=== PATIENT | male | born 1965 | race Caucasian/White ===

== ENCOUNTER 2019-01-24 07:17 | Inpatient (IN) | payer MEDICAID ==
[2019-01-23 13:01] LABS: CLARITY,URINE CLEAR (Clear); COLOR,URINE STRAW (Yellow); GLUCOSE, URINE NEGATIVE (Neg); KETONES,URINE NEGATIVE (Neg); LEUKOCYTE ESTERASE ,URINE NEGATIVE (Neg); NITRITES, URINE NEGATIVE (Neg); OCCULT BLOOD,URINE NEGATIVE (Neg); PH,URINE 5.5 (4.8-8.0); PROTEIN,URINE NEGATIVE (Neg); UROBILINOGEN,URINE 0.2 E.U/dL (0.2-1.0)
[2019-01-23 13:03] LABS: UA COLLECTION TYPE NON-SPECIFIED
[2019-01-23 13:04] LABS: BASOPHILS # (AUTO) 0.1 X10'3 (0-0.2); BASOPHILS % (AUTO) 1.1 % (0-1); EOSINOPHILS # (AUTO) 0.3 X10'3 (0-0.9); EOSINOPHILS % (AUTO) 3.5 % (0-6); LYMPHOCYTES # (AUTO) 2.1 X10'3 (1.1-4.8); LYMPHOCYTES % (AUTO) 21.9 % (21-51); MEAN CORPUSCULAR HGB CONC 33.9 g/dL (33.0-36.5); MEAN CORPUSCULAR VOLUME 91.5 FL (78-98); MEAN PLATELET VOLUME 9.2 FL (7.4-10.4); MONOCYTES # (AUTO) 1.1 X10'3 (0-0.9); MONOCYTES % (AUTO) 10.8 % (2-12); NEUTROPHILS # (AUTO) 6.1 X10'3 (1.8-7.7); NEUTROPHILS % (AUTO) 62.7 % (42-75); PRE OP HEMATOCRIT 45.9 % (42.0-52.0); PRE OP HEMOGLOBIN 15.6 g/dL (14.0-17.9); PRE OP PLATELET COUNT 276 X10'3 (140-440); RED BLOOD COUNT 5.02 X10'6 (4.70-6.10); RED CELL DISTRIBUTION WIDTH 14.1 % (11.5-14.5)
[2019-01-23 13:18] LABS: PRE OP PROTIME 10.5 SECONDS (9.0-12.0)
[2019-01-23 13:19] LABS: ALBUMIN 3.9 G/DL (3.4-5.0); ALBUMIN/GLOBULIN RATIO 1.2 (1.1-1.5); ALKALINE PHOSPHATASE 41 IU/L (46-116); BLOOD UREA NITROGEN 8 MG/DL (7-18); BUN/CREATININE RATIO 7.7 (5.4-32.0); CALCIUM 9.1 MG/DL (8.5-10.1); CHLORIDE 103 MMOL/L (99-107); CREATININE 1.04 MG/DL (0.60-1.10); PRE OP ALT 54 U/L (30-65); PRE OP ANION GAP 9 (8-16); PRE OP AST 29 U/L (10-37); PRE OP BILIRUB, TOTAL 0.2 MG/DL (0.0-1.0); PRE OP GLUCOSE 94 MG/DL (70-104); PRE OP POTASSIUM 4.8 MMOL/L (3.4-5.1); PRE OP SODIUM 136 MMOL/L (135-145); TOTAL CARBON DIOXIDE 24.1 MMOL/L (24-32); TOTAL PROTEIN 7.1 G/DL (6.4-8.2); eGFR 74 ML/MIN
[2019-01-24] VITALS (16 sets, daily range): BP systolic 117–157; BP diastolic 70–88
[~2019-01-24] VITALS: Ht 165.1 cm; Wt 91.3 kg
[~2019-01-24 07:17] MED LIST: ALPR1TAB7 PO; ASPI-1265 PO; DOCUMENT DATE & TIME OF BETA-BLOCKER PO ONE; FLUT16SP2 BOTHNARES; HYDR-4353 PO; LISI-643 PO; METO-539 PO; RANI300T4 PO; ROSU40TA PO; albuterol 2.5 MG/3 ML nebule NEB ONE; cefazolin/dext.iso 2gm/100 ML IV ONE; famotidine 20mg tablet PO ONE; metoprolol tartrate 25mg tablet PO ONE; ringers solution, lacted 1,000 ML IV SCH
[2019-01-24] MEDS ORDERED: normal saline 500ml IV soln 500 ML IV ONE (07:55)
[2019-01-24] MEDS ORDERED: nitroGLYCERIN 0.4mg SUBLingual tab SL PRN (07:55)
[2019-01-24] MEDS ORDERED: regadenoson 0.4mg/5ml syringe IV ONE ×2 (07:55→08:32)
[2019-01-24] MEDS ORDERED: aminophylline 250mg/10ml inj. IV PRN ×2 (07:55→08:35)
[2019-01-24] MEDS ORDERED: cefazolin/dext.iso 2gm/100ml 100 ML IV ONE (08:02)
[2019-01-24] MEDS ORDERED: aminophylline inj. 10 ML IV ONE (08:32)
[2019-01-24] MEDS ORDERED: LIDOcaine 1% (10mg/ml) 2ml vial ONE ×2 (10:08→11:09)
[2019-01-24] MEDS ORDERED: iohexol 300 MG/1 ML 10ml vial ONE (10:28)
[2019-01-24] MEDS ORDERED: heparin 10,000 units/1 ML INJ ONE (10:28)
[2019-01-24] MEDS ORDERED: ceFAZolin 1000mg inj ONE ×3 (10:29→17:54)
[2019-01-24] MEDS ORDERED: iohexol 300 MG/1 ML 50ml polymer ONE (10:30)
[2019-01-24] MEDS ORDERED: NORepinephrine 1 mg/ml inj IV ONE (11:58)
[2019-01-24] MEDS ORDERED: sevoflurane 250ml liquid IH ONE (13:43)
[2019-01-24] MEDS ORDERED: fentaNYL /PF 50mcg/ml 5ml ampule ONE (13:48)
[2019-01-24] MEDS ORDERED: rocuronium 10mg/ml inj IV ONE ×3 (13:48→18:22)
[2019-01-24] MEDS ORDERED: MIDAZolam 5mg/5ml vial ONE (13:48)
[2019-01-24] MEDS ORDERED: propofol inj 20 ML IV ONE (13:48)
[2019-01-24] MEDS ORDERED: ringers solution, lacted 1,000 ML IV SCH (15:07)
[2019-01-24] MEDS ORDERED: ondansetron/PF 4mg/2ml inj IV PRN (15:10)
[2019-01-24] MEDS ORDERED: proCHLORperazine 10 MG/2 ml inj IV PRN (15:10)
[2019-01-24] MEDS ORDERED: meperidine/PF 25mg/ml syringe IV PRN ×3 (15:10)
[2019-01-24] MEDS ORDERED: morphine 4 MG/ML inj SYRINge IV PRN ×2 (15:10)
[2019-01-24] MEDS ORDERED: heparin 1,000unit/ml 10ml vial 10 ML ONE (15:48)
[2019-01-24] MEDS ORDERED: nitroGLYCERIN-Tridil 50MG/D5W 250 ML IV ONE (18:09)
[2019-01-24 18:22] LABS: INR 1.2 INR; PROTHROMBIN TIME 12.1 SECONDS (9.0-12.0)
[2019-01-24 18:25] LABS: PARTIAL THROMBOPLASTIN TIME > 153 SECONDS (22-32)
[2019-01-24] MEDS ORDERED: glycopyrrolate 0.2mg/ml inj ONE (18:26)
[2019-01-24] MEDS ORDERED: neostigmine methylsulfate 1 MG/ML 10ml vial ONE (18:26)
[2019-01-24] MEDS ORDERED: fentaNYL/PF 50MCG/1 ML 2ML syringe ONE (18:43)
[2019-01-24] MEDS ORDERED: CADD PCA waste documentation MC PRN (19:20)
[2019-01-24] MEDS ORDERED: naloxone 0.4 mg/ml inj IV PRN (19:20)
[2019-01-24] MEDS ORDERED: metoclopramide 5 mg/ml inj IV PRN (19:20)
[2019-01-24] MEDS ORDERED: HYDROmorphone 1 mg/ml syringe IV ONE (20:10)
[2019-01-24] MEDS: HYDROmorphone/NS 1 mg/ml CADD 50 ML IV SCH ×3 (20:29→23:00)
[2019-01-24 20:37] LABS: BASOPHILS # (AUTO) 0.1 X10'3 (0-0.2); BASOPHILS % (AUTO) 0.5 % (0-1); EOSINOPHILS # (AUTO) 0.2 X10'3 (0-0.9); EOSINOPHILS % (AUTO) 0.9 % (0-6); HEMATOCRIT 39.4 % (42.0-52.0); HEMOGLOBIN 12.9 g/dl (14.0-17.9); LYMPHOCYTES # (AUTO) 2.5 X10'3 (1.1-4.8); LYMPHOCYTES % (AUTO) 10.6 % (21-51); MEAN CORPUSCULAR HEMOGLOBIN 30.4 PG (27.0-31.0); MEAN CORPUSCULAR HGB CONC 32.8 g/dL (33.0-36.5); MEAN CORPUSCULAR VOLUME 92.6 FL (78-98); MEAN PLATELET VOLUME 9.2 FL (7.4-10.4); MONOCYTES # (AUTO) 1.7 X10'3 (0-0.9); MONOCYTES % (AUTO) 7.2 % (2-12); NEUTROPHILS # (AUTO) 19.1 X10'3 (1.8-7.7); NEUTROPHILS % (AUTO) 80.8 % (42-75); PLATELET COUNT 270 X10'3 (140-440); RED BLOOD COUNT 4.26 X10'6 (4.70-6.10); RED CELL DISTRIBUTION WIDTH 14.4 % (11.5-14.5); WHITE BLOOD COUNT 23.6 X10'3 (4.5-11.0)
[2019-01-24 20:52] LABS: ALANINE AMINOTRANSFERASE 39 U/L (12-78); ALBUMIN 3.5 G/DL (3.4-5.0); ALBUMIN/GLOBULIN RATIO 1.5 (1.1-1.5); ALKALINE PHOSPHATASE 35 IU/L (46-116); ANION GAP 11 (8-16); ASPARTATE AMINO TRANSFERASE 27 U/L (10-37); BILIRUBIN,TOTAL 0.3 MG/DL (0.1-1.0); BLOOD UREA NITROGEN 10 MG/DL (7-18); BUN/CREATININE RATIO 9.5 (5.4-32.0); CALCIUM 7.9 MG/DL (8.5-10.1); CHLORIDE 107 MMOL/L (99-107); CREATININE 1.05 MG/DL (0.60-1.10); GLUCOSE 152 MG/DL (70-104); MAGNESIUM 1.5 MG/DL (1.5-2.4); POTASSIUM 4.7 MMOL/L (3.5-5.1); SODIUM 140 MMOL/L (135-145); TOTAL CARBON DIOXIDE 22.1 MMOL/L (24-32); TOTAL PROTEIN 5.8 G/DL (6.4-8.2); eGFR 73 ML/MIN
[2019-01-24 20:54] LABS: INR 1.1 INR; PROTHROMBIN TIME 11.5 SECONDS (9.0-12.0)
[2019-01-24 20:59] LABS: PLATELET ESTIMATE NORMAL; TOTAL CELLS COUNTED 100
[2019-01-24] MEDS: potassium CL 20mEq in D5-1/2NS 1,000 ML IV SCH (22:06)
[2019-01-25] VITALS (24 sets, daily range): BP systolic 116–154; BP diastolic 55–92
[2019-01-25] MEDS: piperacillin/tazo 3.375gm/50ml 50 ML IV SCH ×3 (00:02→15:59)
[2019-01-25] MEDS: ondansetron/PF 4mg/2ml inj IV PRN ×2 (00:48→22:41)
[2019-01-25] MEDS: dextrose 5%-1/2 normal saline 1,000 ML IV SCH ×2 (00:50→11:00)
[2019-01-25] MEDS: HYDROmorphone/NS 1 mg/ml CADD 50 ML IV SCH ×12 (01:00→23:00)
[2019-01-25] MEDS ORDERED: HYDROcodone/acetaminophen 10/325mg tab PO PRN (01:45)
[2019-01-25 03:03] LABS: BASOPHILS # (AUTO) 0.1 X10'3 (0-0.2); BASOPHILS % (AUTO) 0.3 % (0-1); EOSINOPHILS % (AUTO) 0.1 % (0-6); HEMATOCRIT 39.1 % (42.0-52.0); HEMOGLOBIN 12.8 g/dl (14.0-17.9); LYMPHOCYTES # (AUTO) 0.8 X10'3 (1.1-4.8); LYMPHOCYTES % (AUTO) 4.6 % (21-51); MEAN CORPUSCULAR HEMOGLOBIN 30.5 PG (27.0-31.0); MEAN CORPUSCULAR HGB CONC 32.8 g/dL (33.0-36.5); MEAN CORPUSCULAR VOLUME 93.1 FL (78-98); MONOCYTES # (AUTO) 1.5 X10'3 (0-0.9); MONOCYTES % (AUTO) 8.6 % (2-12); NEUTROPHILS # (AUTO) 15.4 X10'3 (1.8-7.7); NEUTROPHILS % (AUTO) 86.4 % (42-75); PLATELET COUNT 236 X10'3 (140-440); RED BLOOD COUNT 4.21 X10'6 (4.70-6.10); RED CELL DISTRIBUTION WIDTH 14.6 % (11.5-14.5); WHITE BLOOD COUNT 17.8 X10'3 (4.5-11.0)
[2019-01-25 03:14] LABS: ALBUMIN 3.5 G/DL (3.4-5.0); ANION GAP 11 (8-16); BLOOD UREA NITROGEN 11 MG/DL (7-18); BUN/CREATININE RATIO 9.8 (5.4-32.0); CALCIUM 8.2 MG/DL (8.5-10.1); CHLORIDE 105 MMOL/L (99-107); CREATININE 1.12 MG/DL (0.60-1.10); GLUCOSE 167 MG/DL (70-104); POTASSIUM 5.8 MMOL/L (3.5-5.1); SODIUM 139 MMOL/L (135-145); TOTAL CARBON DIOXIDE 22.6 MMOL/L (24-32); eGFR 68 ML/MIN
[2019-01-25] MEDS: potassium CL 20mEq in D5-1/2NS 1,000 ML IV SCH (03:19)
[2019-01-25] MEDS: aspirin 81mg tab.chew PO SCH (08:00)
[2019-01-25] MEDS: fluticasone nasal spray 16GM bottle NS SCH (08:00)
[2019-01-25] MEDS ORDERED: lisinopril 10 MG tablet PO SCH (08:00)
[2019-01-25] MEDS: metoprolol succinate 25mg (24-HOUR) SR. Tablet PO SCH (08:00)
[2019-01-25] MEDS ORDERED: dextrose 5%-1/4 normal saline 1,000 ML IV SCH (10:50)
--- NOTE | 2019-01-25 18:12 | NUR ---
At the start of shift, noted patient's potassium was 5.8; patient at this time receiving D5-1/2NS with 20meq of K, however, was receiving piggyback antibiotics. D5-1/2NS with 20meq of K was thus stopped and MD orders to convert to D5-1/2NS at the same rate. Pulses remained palpable throughout the day. During rounds with Dr. Hernadez, orders to keep patient NPO with ice-chips and popsicles; hold off on PO medications. Try to keep SBP at 140; patient's blood pressure remained steady between 130 to 140 and occasionally reached SBP 150; encouraged use of CADD pump to manage pain and blood pressure. IS/FV encouraged through the day. Patient up with PT standing at side of bed; however, patient was in too much pain and placed back to bed. Vital signs stable throughout. ART line removed around 1200 and pressure held until hemostasis achieved. Pt pleasant and compliant with plan of care; hungry but happy with popsicles for now. Will advance diet as tolerated once patient passes more gas/stool. Report given to Aman GONZALEZ with all questions answered.
[2019-01-25] MEDS: lactobacillus rhamnosus 10,000 MMU CELLS/CAPSULE PO SCH (20:00)
[2019-01-25] MEDS: atorvastatin 20mg tablet PO SCH (21:00)
[2019-01-25] MEDS: famotidine 20mg tablet PO SCH (21:00)
[2019-01-26] VITALS (24 sets, daily range): BP systolic 113–176; BP diastolic 49–100
[2019-01-26] MEDS: piperacillin/tazo 3.375gm/50ml 50 ML IV SCH ×4 (00:53→23:00)
[2019-01-26] MEDS: HYDROmorphone/NS 1 mg/ml CADD 50 ML IV SCH ×12 (01:00→23:00)
[2019-01-26] MEDS: dextrose 5%-1/2 normal saline 1,000 ML IV SCH ×4 (02:55→22:56)
[2019-01-26 03:33] LABS: BASOPHILS % (AUTO) 0.3 % (0-1); EOSINOPHILS % (AUTO) 0.1 % (0-6); HEMATOCRIT 35.4 % (42.0-52.0); HEMOGLOBIN 11.8 g/dl (14.0-17.9); LYMPHOCYTES # (AUTO) 1.2 X10'3 (1.1-4.8); LYMPHOCYTES % (AUTO) 8.4 % (21-51); MEAN CORPUSCULAR HEMOGLOBIN 30.8 PG (27.0-31.0); MEAN CORPUSCULAR HGB CONC 33.5 g/dL (33.0-36.5); MEAN CORPUSCULAR VOLUME 91.9 FL (78-98); MEAN PLATELET VOLUME 8.9 FL (7.4-10.4); MONOCYTES % (AUTO) 13.9 % (2-12); NEUTROPHILS # (AUTO) 11.1 X10'3 (1.8-7.7); NEUTROPHILS % (AUTO) 77.3 % (42-75); PLATELET COUNT 202 X10'3 (140-440); RED BLOOD COUNT 3.85 X10'6 (4.70-6.10); RED CELL DISTRIBUTION WIDTH 14.5 % (11.5-14.5); WHITE BLOOD COUNT 14.3 X10'3 (4.5-11.0)
[2019-01-26 03:34] LABS: ALBUMIN 3.1 G/DL (3.4-5.0); ANION GAP 7 (8-16); BLOOD UREA NITROGEN 9 MG/DL (7-18); BUN/CREATININE RATIO 7.8 (5.4-32.0); CALCIUM 8.3 MG/DL (8.5-10.1); CHLORIDE 105 MMOL/L (99-107); CREATININE 1.15 MG/DL (0.60-1.10); GLUCOSE 149 MG/DL (70-104); SODIUM 140 MMOL/L (135-145); TOTAL CARBON DIOXIDE 27.9 MMOL/L (24-32); eGFR 66 ML/MIN
[2019-01-26] MEDS: lactobacillus rhamnosus 10,000 MMU CELLS/CAPSULE PO SCH ×2 (07:10→20:09)
[2019-01-26] MEDS: fluticasone nasal spray 16GM bottle NS SCH (07:10)
[2019-01-26] MEDS: aspirin 81mg tab.chew PO SCH (07:10)
[2019-01-26] MEDS: metoprolol succinate 25mg (24-HOUR) SR. Tablet PO SCH (07:10)
[2019-01-26] MEDS ORDERED: aspirin 81mg tablet.DR PO SCH (08:00)
[2019-01-26] MEDS: enoxaparin 40mg/0.4ml syringe SUBCUT SCH (13:29)
--- NOTE | 2019-01-26 14:00 | NUR ---
D/C'd [facility] per hospital policy; hemostasis achieved and dressing placed. Patient tolerated procedure well. Cannula intact.
[2019-01-26] MEDS: metoclopramide 5 mg/ml inj IV SCH ×2 (14:15→20:08)
--- NOTE | 2019-01-26 17:27 | NUR ---
Patient recovering well and up with physical therapy today today and sat in chair for about 2 hours. Painful in the adb, but encouraged use of CADD pump, which helped ease pain. Patient reports "something is brewing" in his intestines and is waiting to pass gas so he can start eating. Dr. Hernadez okay with popsicles, ice chips, and PO medications, otherwise NPO. Patient using IS and FV frequently. Encouraged freq turns in bed.
--- NOTE | 2019-01-26 18:20 | NUR ---
Patient in room ICU 2044. I have received report from CARLOS Boyd and had the opportunity to ask questions and assume patient care with preceptor CARLOS Hooper.
--- NOTE | 2019-01-26 18:36 | NUR ---
Patient report given to Sandie GONZALEZ and Grace GONZALEZ with all questions answered.
[2019-01-26] MEDS: atorvastatin 20mg tablet PO SCH (20:09)
[2019-01-26] MEDS: famotidine 20mg tablet PO SCH (20:10)
--- NOTE | 2019-01-26 20:14 | NUR ---
Medications sent home with Laure.
--- NOTE | 2019-01-26 21:13 | NUR ---
Pt unable to void 2000 bladder scan for 625ml, pt stood up attempted to void in urinal unable, says feels no urge to void. Called Dr Hernadez per received order to straight cath greater than 650ml.
--- NOTE | 2019-01-26 21:55 | NUR ---
bladder scanned 744ml, straight cath 725ml.
--- NOTE | 2019-01-26 22:31 | NUR ---
Problems reprioritized. Patient report given, questions answered & plan of care reviewed with CARLOS Sharma. Patient to be transfered to room 349B. Patient is awake and alert, c/o pain 3/10 using CADD pump for pain management with encouragement. Groin dressings are clean, dry, intact, no drainage noted, no air leak noted. Positive pedal pulses. Patient would like to be able to sleep tonight as he has had trouble the last few nights. Patient has PRN Xanax for sleep tonight, this information was relayed in report to CARLOS Sharma. Patient placed on patient monitor #2. Transfered to wheelchair with 1 person assist. All patient belongings with patient.
--- NOTE | 2019-01-26 22:32 | NUR ---
I have received report from Addie GONZALEZ and had the opportunity to ask questions. awaiting pt arrival
--- NOTE | 2019-01-26 22:40 | NUR ---
Transferred via wheelchair Belongings sent with patient to room 349B. Special Issues communicated to receiving nurse. Pt stable on transfer.Edith GONZALEZ.
--- NOTE | 2019-01-26 22:45 | NUR ---
Orientation documentation:I have reviewed and agree with all interventions, assessments performed and documented by Addie Orta RN. Orientation Medication Administration: For this medication-pass time frame, all medication were reviewed, dispensed, administered and documented per hospital policy by Addie Zambrano RN..
[2019-01-26] MEDS: ALPRAZolam 0.5mg tablet PO PRN (22:56)
--- NOTE | 2019-01-26 23:15 | NUR ---
called Dr. Dinero concerning heart rate being reported in the high 20s and not going about 35 in afib. pt is asymptomatic and blood pressure 116/54. orders given and pt may need to be transferred. Addendum: 01/26/19 at 4894 by Edith Dawson RN disregard previous note.
[2019-01-27] VITALS: BP 159/96
[2019-01-27] MEDS: HYDROmorphone/NS 1 mg/ml CADD 50 ML IV SCH ×12 (01:00→23:00)
[2019-01-27] MEDS: metoclopramide 5 mg/ml inj IV SCH ×4 (01:54→20:05)
--- NOTE | 2019-01-27 05:21 | NUR ---
bladder scan showed 456mL in the bladder. pt states he feels the need to urinal but cant quite yet. helped pt stand at the side of bed to use urinal. will continue to monitor.
[2019-01-27 05:35] VITALS: BP 182/94
--- NOTE | 2019-01-27 05:35 | NUR ---
pt sitting at the side of the bed trying to use urinal and "moving around to pas some gas." states he feels fine. groin is soft to touch, dressing CDI with no leakage. abdomen is soft, dressing CDI with no leakage. blood pressure 182/94 and heart rate 135. will continue to monitor.
[2019-01-27 05:39] LABS: BASOPHILS % (AUTO) 0.3 % (0-1); EOSINOPHILS # (AUTO) 0.1 X10'3 (0-0.9); EOSINOPHILS % (AUTO) 0.9 % (0-6); HEMATOCRIT 34.3 % (42.0-52.0); HEMOGLOBIN 11.5 g/dl (14.0-17.9); LYMPHOCYTES # (AUTO) 1.5 X10'3 (1.1-4.8); LYMPHOCYTES % (AUTO) 12.4 % (21-51); MEAN CORPUSCULAR HEMOGLOBIN 30.8 PG (27.0-31.0); MEAN CORPUSCULAR HGB CONC 33.4 g/dL (33.0-36.5); MEAN PLATELET VOLUME 8.8 FL (7.4-10.4); MONOCYTES # (AUTO) 1.9 X10'3 (0-0.9); MONOCYTES % (AUTO) 14.9 % (2-12); NEUTROPHILS # (AUTO) 8.8 X10'3 (1.8-7.7); NEUTROPHILS % (AUTO) 71.5 % (42-75); PLATELET COUNT 203 X10'3 (140-440); RED BLOOD COUNT 3.73 X10'6 (4.70-6.10); RED CELL DISTRIBUTION WIDTH 14.4 % (11.5-14.5); WHITE BLOOD COUNT 12.4 X10'3 (4.5-11.0)
[2019-01-27 05:43] LABS: ALBUMIN 2.9 G/DL (3.4-5.0); ANION GAP 10 (8-16); BLOOD UREA NITROGEN 9 MG/DL (7-18); BUN/CREATININE RATIO 8.9 (5.4-32.0); CALCIUM 8.7 MG/DL (8.5-10.1); CHLORIDE 103 MMOL/L (99-107); CREATININE 1.01 MG/DL (0.60-1.10); GLUCOSE 137 MG/DL (70-104); POTASSIUM 3.5 MMOL/L (3.5-5.1); SODIUM 141 MMOL/L (135-145); TOTAL CARBON DIOXIDE 27.9 MMOL/L (24-32); eGFR 77 ML/MIN
--- NOTE | 2019-01-27 06:10 | NUR ---
Problems reprioritized. Patient report given, questions answered & plan of care reviewed with Melecio GONZALEZ. Janisn clamped, started infusing at 0640. IV intact, call light and frq used belongings within reach. no signs of distress. wound vac at 125, dressings CDI no leak or drainage. abdominal dressing CDI with scant drainage noted on the dressing.
--- NOTE | 2019-01-27 06:51 | NUR ---
Patient in room [facility] 349. I have received report from Edith GONZALEZ and had the opportunity to ask questions and assume patient care.
[2019-01-27 08:00] VITALS: BP 150/89
[2019-01-27] MEDS: fluticasone nasal spray 16GM bottle NS SCH (09:36)
[2019-01-27] MEDS: piperacillin/tazo 3.375gm/50ml 50 ML IV SCH ×3 (09:37→23:43)
[2019-01-27] MEDS: metoprolol succinate 25mg (24-HOUR) SR. Tablet PO SCH (09:39)
[2019-01-27] MEDS: lactobacillus rhamnosus 10,000 MMU CELLS/CAPSULE PO SCH ×2 (09:39→20:02)
[2019-01-27] MEDS: enoxaparin 40mg/0.4ml syringe SUBCUT SCH (09:40)
[2019-01-27] MEDS: aspirin 81mg tab.chew PO SCH (09:40)
[2019-01-27] MEDS: dextrose 5%-1/2 normal saline 1,000 ML IV SCH ×2 (10:55→20:14)
[2019-01-27 12:00] VITALS: BP 128/83
--- NOTE | 2019-01-27 14:06 | NUR ---
Dr Hernadez rounded on patient received orders to start Flomax 0.4mg PO Daily, possible discharge monday or monday. The Day of patients discharge ok to [facility] and follow up in Dr Shi office 1 week.
--- NOTE | 2019-01-27 15:56 | NUR ---
Initial: Pt s/p aorto-bifemoral bypass. Advanced to clear liquids 01/27 PO 100% first meal. Pt NPO since admit 01/24 w/ PO documentation of 100% meals during NPO; likely documentation error since pt did not receive and food from dietary unless food brought in from outside. LBM 01/24. Will monitor for diet advancement and additional protein needs. Rec: 1. advance diet per MD to low-residue 2. monitor for ONS needs 3. wt per rx Addendum: 01/27/19 at [address] Amended: Links added.
--- NOTE | 2019-01-27 17:30 | NUR ---
Straight Catheter - 900ml out.
--- NOTE | 2019-01-27 18:25 | NUR ---
Received report from CARLOS Majano. Patient is awake and alert on room air, in no apparent distress. Call light and items of frequent use within reach. Will continue to monitor.
--- NOTE | 2019-01-27 18:33 | NUR ---
Problems reprioritized. Patient report given, questions answered & plan of care reviewed with Stephie GONZALEZ.
[2019-01-27 20:00] VITALS: BP 124/86
[2019-01-27] MEDS: magnesium hydroxide 30ml (MOM) UD suspension PO SCH (20:01)
[2019-01-27] MEDS: atorvastatin 20mg tablet PO SCH (20:02)
[2019-01-27] MEDS: famotidine 20mg tablet PO SCH (20:02)
[2019-01-27] MEDS: tamsulosin 0.4mg capsule PO SCH (20:05)
[2019-01-27] MEDS: ALPRAZolam 0.5mg tablet PO PRN (21:29)
[2019-01-28] VITALS: BP 133/75
[2019-01-28] MEDS: HYDROmorphone/NS 1 mg/ml CADD 50 ML IV SCH ×12 (01:00→23:00)
[2019-01-28] MEDS: dextrose 5%-1/2 normal saline 1,000 ML IV SCH ×3 (02:55→16:42)
[2019-01-28] MEDS: metoclopramide 5 mg/ml inj IV SCH ×4 (03:19→19:31)
--- NOTE | 2019-01-28 05:13 | NUR ---
Bladder scan showed 527 cc of urine. Encouraged patient to void
[2019-01-28 06:06] LABS: BASOPHILS # (AUTO) 0.1 X10'3 (0-0.2); BASOPHILS % (AUTO) 0.8 % (0-1); EOSINOPHILS # (AUTO) 0.3 X10'3 (0-0.9); EOSINOPHILS % (AUTO) 3.9 % (0-6); HEMATOCRIT 29.3 % (42.0-52.0); HEMOGLOBIN 10.1 g/dl (14.0-17.9); LYMPHOCYTES # (AUTO) 0.9 X10'3 (1.1-4.8); LYMPHOCYTES % (AUTO) 12.6 % (21-51); MEAN CORPUSCULAR HEMOGLOBIN 31.3 PG (27.0-31.0); MEAN CORPUSCULAR HGB CONC 34.3 g/dL (33.0-36.5); MEAN CORPUSCULAR VOLUME 91.2 FL (78-98); MEAN PLATELET VOLUME 8.8 FL (7.4-10.4); MONOCYTES # (AUTO) 1.3 X10'3 (0-0.9); MONOCYTES % (AUTO) 18.1 % (2-12); NEUTROPHILS # (AUTO) 4.7 X10'3 (1.8-7.7); NEUTROPHILS % (AUTO) 64.6 % (42-75); PLATELET COUNT 183 X10'3 (140-440); RED BLOOD COUNT 3.22 X10'6 (4.70-6.10); RED CELL DISTRIBUTION WIDTH 13.9 % (11.5-14.5); WHITE BLOOD COUNT 7.2 X10'3 (4.5-11.0)
--- NOTE | 2019-01-28 06:11 | NUR ---
Problems reprioritized. Patient report given, questions answered & plan of care reviewed with CARLOS Majano.
[2019-01-28 06:28] LABS: ALBUMIN 2.6 G/DL (3.4-5.0); ANION GAP 10 (8-16); BLOOD UREA NITROGEN 7 MG/DL (7-18); BUN/CREATININE RATIO 7.3 (5.4-32.0); CALCIUM 8.2 MG/DL (8.5-10.1); CHLORIDE 99 MMOL/L (99-107); CREATININE 0.96 MG/DL (0.60-1.10); GLUCOSE 126 MG/DL (70-104); SODIUM 137 MMOL/L (135-145); TOTAL CARBON DIOXIDE 28.3 MMOL/L (24-32); eGFR 81 ML/MIN
--- NOTE | 2019-01-28 06:30 | NUR ---
Patient in room [facility] 349. I have received report from Stephie GONZALEZ and had the opportunity to ask questions and assume patient care.
[2019-01-28 06:31] LABS: POTASSIUM 2.9 MMOL/L (3.5-5.1)
[2019-01-28 07:20] LABS: PLATELET ESTIMATE NORMAL; TOTAL CELLS COUNTED 100
[2019-01-28 07:21] LABS: GIANT PLATELET FEW; LARGE PLATELETS FEW
[2019-01-28 07:36] VITALS: BP 116/80
[2019-01-28] MEDS: magnesium hydroxide 30ml (MOM) UD suspension PO SCH ×2 (08:00→19:33)
[2019-01-28] MEDS: piperacillin/tazo 3.375gm/50ml 50 ML IV SCH ×3 (08:10→23:31)
--- NOTE | 2019-01-28 09:30 | NUR ---
Patient giving self bed bath at this time
[2019-01-28] MEDS: fluticasone nasal spray 16GM bottle NS SCH (09:59)
[2019-01-28] MEDS: metoprolol succinate 25mg (24-HOUR) SR. Tablet PO SCH (09:59)
[2019-01-28] MEDS: aspirin 81mg tab.chew PO SCH (10:00)
--- NOTE | 2019-01-28 10:00 | NUR ---
Patient up walking with care staff at this time.
[2019-01-28] MEDS: lactobacillus rhamnosus 10,000 MMU CELLS/CAPSULE PO SCH ×2 (10:01→19:31)
[2019-01-28] MEDS: enoxaparin 40mg/0.4ml syringe SUBCUT SCH (10:02)
[2019-01-28 11:00] VITALS: BP 118/82
[2019-01-28] MEDS ORDERED: potassium Cl 40MEQ/NS 500ml 500 ML IV PRN ×2 (12:35)
[2019-01-28] MEDS ORDERED: magnesium 2GM in 50ml NS 50 ML IV PRN (12:35)
[2019-01-28] MEDS ORDERED: magnesium Cl slow-release 64mg tablet PO PRN (12:35)
[2019-01-28] MEDS ORDERED: potassium Cl 20 mEq SR tablet PO PRN (12:35)
[2019-01-28] MEDS ORDERED: magnesium 4gm in 100ml NS 100 ML IV PRN (12:35)
[2019-01-28] MEDS: potassium Cl 20 mEq SR tablet PO PRN ×2 (13:37→19:31)
--- NOTE | 2019-01-28 18:30 | NUR ---
Problems reprioritized. Patient report given, questions answered & plan of care reviewed with Stephie GONZALEZ.
--- NOTE | 2019-01-28 18:30 | NUR ---
Received report from CARLOS Majano. Patient is awake and alert on room air, in no apparent distress. Sitting up having meal, visitor at bedside. Call light and items of frequent use within reach. Will continue to monitor.
[2019-01-28 20:00] VITALS: BP 125/87
[2019-01-28] MEDS: atorvastatin 20mg tablet PO SCH (20:45)
[2019-01-28] MEDS: famotidine 20mg tablet PO SCH (20:45)
[2019-01-28] MEDS: tamsulosin 0.4mg capsule PO SCH (20:45)
[2019-01-28] MEDS: ALPRAZolam 0.5mg tablet PO PRN (23:31)
[2019-01-29] VITALS: BP 129/75
[2019-01-29] MEDS: dextrose 5%-1/2 normal saline 1,000 ML IV SCH ×2 (00:30→10:39)
[2019-01-29] MEDS: HYDROmorphone/NS 1 mg/ml CADD 50 ML IV SCH ×4 (01:00→07:00)
[2019-01-29] MEDS: metoclopramide 5 mg/ml inj IV SCH ×3 (01:52→14:00)
[2019-01-29 05:06] LABS: BASOPHILS % (AUTO) 0.7 % (0-1); EOSINOPHILS # (AUTO) 0.5 X10'3 (0-0.9); EOSINOPHILS % (AUTO) 6.5 % (0-6); HEMATOCRIT 27.1 % (42.0-52.0); HEMOGLOBIN 9.6 g/dl (14.0-17.9); LYMPHOCYTES # (AUTO) 1.6 X10'3 (1.1-4.8); LYMPHOCYTES % (AUTO) 22.6 % (21-51); MEAN CORPUSCULAR HEMOGLOBIN 32.2 PG (27.0-31.0); MEAN CORPUSCULAR HGB CONC 35.3 g/dL (33.0-36.5); MEAN CORPUSCULAR VOLUME 91.2 FL (78-98); MEAN PLATELET VOLUME 8.7 FL (7.4-10.4); MONOCYTES # (AUTO) 1.2 X10'3 (0-0.9); NEUTROPHILS # (AUTO) 3.8 X10'3 (1.8-7.7); NEUTROPHILS % (AUTO) 53.2 % (42-75); PLATELET COUNT 217 X10'3 (140-440); RED BLOOD COUNT 2.97 X10'6 (4.70-6.10); RED CELL DISTRIBUTION WIDTH 13.8 % (11.5-14.5); WHITE BLOOD COUNT 7.1 X10'3 (4.5-11.0)
[2019-01-29 05:20] LABS: ALBUMIN 2.5 G/DL (3.4-5.0); ANION GAP 8 (8-16); BLOOD UREA NITROGEN 6 MG/DL (7-18); CHLORIDE 105 MMOL/L (99-107); CREATININE 0.86 MG/DL (0.60-1.10); GLUCOSE 114 MG/DL (70-104); MAGNESIUM 1.8 MG/DL (1.5-2.4); SODIUM 141 MMOL/L (135-145); TOTAL CARBON DIOXIDE 28.3 MMOL/L (24-32); eGFR > 90 ML/MIN
--- NOTE | 2019-01-29 06:40 | NUR ---
Patient found to have pulled out IV line, tele monitor and wound vac from himself; He verbalized that he "had a nightmare and he felt like he was in usp tied down by all the wires." CARLOS Tejeda applied pressure dressing with gauze and tape to bilateral groin area. New IV line inserted. Back on Tele monitor. Patient alert and oriented x4 now. Call light and items of frequent use within reach. Problems reprioritized. Patient report given, questions answered & plan of care reviewed with CARLOS Tejeda.
[2019-01-29] MEDS: magnesium hydroxide 30ml (MOM) UD suspension PO SCH (07:27)
[2019-01-29 08:00] VITALS: BP 154/79
[2019-01-29] MEDS: lactobacillus rhamnosus 10,000 MMU CELLS/CAPSULE PO SCH (08:02)
[2019-01-29] MEDS: metoprolol succinate 25mg (24-HOUR) SR. Tablet PO SCH (08:02)
[2019-01-29] MEDS: potassium Cl 20 mEq SR tablet PO PRN ×2 (08:02→12:19)
[2019-01-29] MEDS: aspirin 81mg tab.chew PO SCH (08:02)
[2019-01-29] MEDS: piperacillin/tazo 3.375gm/50ml 50 ML IV SCH (08:03)
[2019-01-29] MEDS: enoxaparin 40mg/0.4ml syringe SUBCUT SCH (08:05)
[2019-01-29] MEDS: fluticasone nasal spray 16GM bottle NS SCH (08:08)
[2019-01-29 12:00] VITALS: BP 139/80
[2019-01-29] MEDS ORDERED: potassium Cl 20 mEq SR tablet PO STA (15:04)
--- NOTE | 2019-01-29 16:15 | NUR ---
Pt discharged home with . Education given on calling 911 if situation gets urgent. wound sites starts bleeding. Pt will f/o will Dr Hernadez, he will call for appt. IV taken out, tele taken off. Pt appropriate for discharge at this time. No confusion. Pt has norco at home he will use, no other new meds needed per Dr Arreguin. Last dose of K+ given for replacement, as one time kdur [address] arreguin.
== END 2019-01-29 16:15 | disposition home or self-care (01) | DRG 167 ==
LOC: PAS IN 07:17 → EDSTATUS 12:45 → ICU 2S 18:29 → SUR 3N 01-26 23:09
PROVIDERS: ADMIT Surgery; ATTEND Surgery
PROC: 02HV33Z Insertion of Infusion Device into Superior Vena Cava, Percutaneous Approach (ICD-10-PCS; 2019-01-24)
PROC: 4A02XM4 Measurement of Cardiac Total Activity, External Approach (ICD-10-PCS; 2019-01-24)
PROC: 3E033HZ Introduction of Radioactive Substance into Peripheral Vein, Percutaneous Approach (ICD-10-PCS; 2019-01-24)
PROC: 021W0JV Bypass Thoracic Aorta, Descending to Lower Extremity Artery with Synthetic Substitute, Open Approach (ICD-10-PCS; principal; 2019-01-24 13:43)
DX: I70.211 Atherosclerosis of native arteries of extremities with intermittent claudication, right leg (principal); I74.09 Other arterial embolism and thrombosis of abdominal aorta; I11.0 Hypertensive heart disease with heart failure; I50.9 Heart failure, unspecified; E87.5 Hyperkalemia; R33.9 Retention of urine, unspecified; I25.10 Atherosclerotic heart disease of native coronary artery without angina pectoris; J44.9 Chronic obstructive pulmonary disease, unspecified; M19.90 Unspecified osteoarthritis, unspecified site
CPT/HCPCS: 36415; 71045; 71046; 78452; 80048; 80053; 81003; 82948; 83735; 85025; 85610; 85730; 86885; 86900; 86901; 86920; 87070; 93005; 93017; 97110; 97116; 97162; A6255; A6258; A7000; A9500; C1758; C1768; G0378; J0280; J0690; J1170; J1644; J1650; J2250; J2405; J2543; J2704; J2710; J2765; J3010; J3490; J7030; J7120; Q9967

== ENCOUNTER 2019-02-05 06:21 | Inpatient (IN) | payer MEDICAID ==
[2019-02-05] VITALS (14 sets, daily range): BP systolic 118–146; BP diastolic 68–86
[~2019-02-05] VITALS: Ht 165.1 cm; Wt 94.5 kg
[~2019-02-05 06:21] MED LIST changes: -DOCUMENT DATE & TIME OF BETA-BLOCKER PO ONE; -albuterol 2.5 MG/3 ML nebule NEB ONE; -cefazolin/dext.iso 2gm/100 ML IV ONE; -famotidine 20mg tablet PO ONE; -metoprolol tartrate 25mg tablet PO ONE; -ringers solution, lacted 1,000 ML IV SCH
[2019-02-05] MEDS ORDERED: ALPRAZolam 0.5mg tablet PO ONE (06:45)
[2019-02-05] MEDS ORDERED: sulfamethoxazole/trimethoprim DS (800/160mg) tablet PO ONE (07:00)
[2019-02-05 07:27] LABS: BASOPHILS # (AUTO) 0.1 X10'3 (0-0.2); BASOPHILS % (AUTO) 0.8 % (0-1); EOSINOPHILS # (AUTO) 0.4 X10'3 (0-0.9); EOSINOPHILS % (AUTO) 4.4 % (0-6); HEMATOCRIT 34.3 % (42.0-52.0); HEMOGLOBIN 11.5 g/dl (14.0-17.9); LYMPHOCYTES % (AUTO) 24.5 % (21-51); MEAN CORPUSCULAR HEMOGLOBIN 30.8 PG (27.0-31.0); MEAN CORPUSCULAR HGB CONC 33.6 g/dL (33.0-36.5); MEAN CORPUSCULAR VOLUME 91.5 FL (78-98); MEAN PLATELET VOLUME 8.4 FL (7.4-10.4); MONOCYTES # (AUTO) 1.1 X10'3 (0-0.9); MONOCYTES % (AUTO) 13.2 % (2-12); NEUTROPHILS # (AUTO) 4.7 X10'3 (1.8-7.7); NEUTROPHILS % (AUTO) 57.1 % (42-75); PLATELET COUNT 387 X10'3 (140-440); RED BLOOD COUNT 3.75 X10'6 (4.70-6.10); RED CELL DISTRIBUTION WIDTH 14.7 % (11.5-14.5); WHITE BLOOD COUNT 8.2 X10'3 (4.5-11.0)
[2019-02-05 07:40] LABS: ALANINE AMINOTRANSFERASE 37 U/L (12-78); ALBUMIN 3.1 G/DL (3.4-5.0); ALBUMIN/GLOBULIN RATIO 0.9 (1.1-1.5); ALKALINE PHOSPHATASE 48 IU/L (46-116); ANION GAP 10 (8-16); ASPARTATE AMINO TRANSFERASE 23 U/L (10-37); BILIRUBIN,TOTAL 0.2 MG/DL (0.1-1.0); BLOOD UREA NITROGEN 10 MG/DL (7-18); BUN/CREATININE RATIO 11.4 (5.4-32.0); CALCIUM 8.9 MG/DL (8.5-10.1); CHLORIDE 107 MMOL/L (99-107); CREATININE 0.88 MG/DL (0.60-1.10); GLUCOSE 98 MG/DL (70-104); POTASSIUM 3.9 MMOL/L (3.5-5.1); SODIUM 140 MMOL/L (135-145); TOTAL CARBON DIOXIDE 22.6 MMOL/L (24-32); TOTAL PROTEIN 6.6 G/DL (6.4-8.2); eGFR 90 ML/MIN
[2019-02-05 07:48] LABS: PARTIAL THROMBOPLASTIN TIME 30 SECONDS (22-32)
--- NOTE | 2019-02-05 07:48 | NUR ---
report recieved from johann. molly is aware his pt is here. pt is awaiting IR for wound vac placement.
[2019-02-05] MEDS: normal saline 1000ml 1,000 ML IV SCH ×3 (08:16→23:00)
[2019-02-05] MEDS ORDERED: mag hydrox/Alum hydrox/simeth 30ml oral suspension PO PRN (08:20)
[2019-02-05] MEDS ORDERED: HYDROcodone/acetaminophen 5mg/325mg tablet PO PRN (08:20)
[2019-02-05] MEDS ORDERED: potassium Cl 20 mEq SR tablet PO PRN ×2 (08:20)
[2019-02-05] MEDS ORDERED: diphenhydrAMINE 25mg capsule PO PRN (08:20)
[2019-02-05] MEDS ORDERED: ondansetron/PF 4mg/2ml inj IV PRN ×2 (08:20→15:30)
[2019-02-05] MEDS ORDERED: magnesium 4gm in 100ml NS 100 ML IV PRN (08:20)
[2019-02-05] MEDS ORDERED: bisacodyl 10mg suppository rectal RC PRN (08:20)
[2019-02-05] MEDS ORDERED: magnesium Cl slow-release 64mg tablet PO PRN (08:20)
[2019-02-05] MEDS ORDERED: potassium Cl 40MEQ/NS 500ml 500 ML IV PRN ×2 (08:20)
[2019-02-05] MEDS ORDERED: acetaminophen 325mg tablet PO PRN ×2 (08:20)
[2019-02-05] MEDS ORDERED: morphine 2 MG/ML inj. syringe IV PRN (08:20)
[2019-02-05] MEDS: K and/or MAG REPLACEMENT MC SCH (08:20)
[2019-02-05] MEDS ORDERED: magnesium 2GM in 50ml NS 50 ML IV PRN (08:20)
[2019-02-05] MEDS ORDERED: magnesium hydroxide 30ml (MOM) UD suspension PO PRN (08:20)
[2019-02-05] MEDS ORDERED: LIDOcaine 1%/PF 5ML 10 MG/ML VIAL ONE (09:12)
--- NOTE | 2019-02-05 09:29 | NUR ---
PT TO IR
[2019-02-05] MEDS ORDERED: FLUT12AE9 IH (11:35)
[2019-02-05] MEDS ORDERED: ceFAZolin 2gm in dextrose, iso 100 ML IV ONE (13:15)
[2019-02-05] MEDS ORDERED: ringers solution, lacted 1,000 ML IV SCH (15:29)
[2019-02-05] MEDS ORDERED: fentaNYL/PF 50MCG/1 ML 2ML syringe IV PRN ×2 (15:30)
[2019-02-05] MEDS ORDERED: morphine 4 MG/ML inj SYRINge IV PRN ×2 (15:30)
[2019-02-05] MEDS ORDERED: labetalol 20mg/4ml (5mg/ml) syringe IV PRN (15:30)
[2019-02-05] MEDS ORDERED: hydrALAZINE 20mg/ml inj. IV PRN (15:30)
[2019-02-05] MEDS ORDERED: sevoflurane 250ml liquid IH ONE (20:11)
[2019-02-05] MEDS ORDERED: glycopyrrolate 0.2mg/ml inj ONE (20:11)
[2019-02-05] MEDS ORDERED: dexamethasone sod phosphate 10mg/ml inj ONE (20:11)
[2019-02-05] MEDS ORDERED: ceFAZolin 1000mg inj ONE ×3 (20:15→20:26)
[2019-02-05] MEDS ORDERED: fentaNYL/PF 50MCG/1 ML 2ML syringe ONE (20:18)
[2019-02-05] MEDS ORDERED: MIDAZolam 5mg/5ml vial ONE (20:19)
[2019-02-05] MEDS ORDERED: propofol inj 20 ML IV ONE ×2 (20:21→20:56)
[2019-02-05] MEDS ORDERED: rocuronium 10mg/ml inj IV ONE (20:21)
[2019-02-05] MEDS ORDERED: LIDOcaine 2% (20mg/ml) 5ml vial ONE (20:21)
[2019-02-05] MEDS ORDERED: ondansetron/PF 4mg/2ml inj ONE (20:28)
[2019-02-05] MEDS ORDERED: neostigmine methylsulfate 1 MG/ML 10ml vial ONE (20:30)
--- NOTE | 2019-02-05 21:15 | NUR ---
Received from OR via , accompanied by Anesthesiologist DR WINCHESTER and report given by Anesthesiolgist. PT HAS ORAL AIRWAY IN PLACE ON ADMIT TO PACU, BUT WITHIN 5 MINS PATEINT IS AWAKE AND ORAL AIRWAY IS REMOVED. PT IS AWAKE, ALERT, MOVES EXT X 4, SKIN WARM AND PINK, NO C/O PAIN, 18G RIGHT FA WITH LR 100ML/HR, SCD'S, RIGHT GROIN WITH CAROL AND WOUND VAC TO 175MMHG CONTINUOUS SUCTION, VSS.
--- NOTE | 2019-02-05 21:47 | NUR ---
Report called to receiving nurse. Transferred via BED Belongings . Special Issues communicated to receiving nurse.PT IS AWAKE, ALERT, ORIENTED, MOVES EXT X 4, WAS ABLE TO SCOOT INDEP'LY FROM THE ORTHO BED ONTO THE SURGICAL FLOOR BED, PIV PATENT, SCD'S, WOUND VAC TO 175MMHG CONTINUOUS, BILAT GROIN SITES CD, EFREN ICE WATER, VSS, MEETS DISCHARGE CRITERIA.
--- NOTE | 2019-02-05 22:05 | NUR ---
[facility] I have received report from CARLOS Zavala and had the opportunity to ask questions and assume patient care. Pt oriented to room and routine. Addendum: 02/06/19 at 0030 by Irena Hooker RN Amended: Links added.
[2019-02-05] MEDS: morphine 2 MG/ML inj. syringe IV PRN (23:00)
[2019-02-05] MEDS: heparin, porcine 5000 units/ml vial SQ SCH (23:05)
[2019-02-05] MEDS ORDERED: ALPRAZolam 0.25mg tablet PO PRN (23:45)
[2019-02-06] VITALS (7 sets, daily range): BP systolic 135–153; BP diastolic 73–88
[2019-02-06] MEDS: metoprolol succinate 25mg (24-HOUR) SR. Tablet PO SCH ×3 (00:07→09:10)
[2019-02-06] MEDS: morphine 2 MG/ML inj. syringe IV PRN (04:31)
[2019-02-06 04:52] LABS: BASOPHILS % (AUTO) 0.4 % (0-1); EOSINOPHILS % (AUTO) 0.1 % (0-6); HEMATOCRIT 35.7 % (42.0-52.0); LYMPHOCYTES # (AUTO) 0.7 X10'3 (1.1-4.8); LYMPHOCYTES % (AUTO) 8.9 % (21-51); MEAN CORPUSCULAR HEMOGLOBIN 30.4 PG (27.0-31.0); MEAN CORPUSCULAR HGB CONC 33.6 g/dL (33.0-36.5); MEAN CORPUSCULAR VOLUME 90.5 FL (78-98); MEAN PLATELET VOLUME 8.6 FL (7.4-10.4); MONOCYTES # (AUTO) 0.1 X10'3 (0-0.9); MONOCYTES % (AUTO) 1.7 % (2-12); NEUTROPHILS # (AUTO) 7.3 X10'3 (1.8-7.7); NEUTROPHILS % (AUTO) 88.9 % (42-75); PLATELET COUNT 368 X10'3 (140-440); RED BLOOD COUNT 3.94 X10'6 (4.70-6.10); RED CELL DISTRIBUTION WIDTH 14.6 % (11.5-14.5); WHITE BLOOD COUNT 8.2 X10'3 (4.5-11.0)
[2019-02-06 05:14] LABS: ALANINE AMINOTRANSFERASE 34 U/L (12-78); ALBUMIN 2.9 G/DL (3.4-5.0); ALBUMIN/GLOBULIN RATIO 0.8 (1.1-1.5); ALKALINE PHOSPHATASE 46 IU/L (46-116); ANION GAP 9 (8-16); ASPARTATE AMINO TRANSFERASE 21 U/L (10-37); BILIRUBIN,TOTAL 0.2 MG/DL (0.1-1.0); BLOOD UREA NITROGEN 9 MG/DL (7-18); BUN/CREATININE RATIO 9.7 (5.4-32.0); CALCIUM 8.6 MG/DL (8.5-10.1); CHLORIDE 108 MMOL/L (99-107); CREATININE 0.93 MG/DL (0.60-1.10); GLUCOSE 132 MG/DL (70-104); MAGNESIUM 1.9 MG/DL (1.5-2.4); PHOSPHORUS 3.2 MG/DL (2.3-4.5); POTASSIUM 4.5 MMOL/L (3.5-5.1); SODIUM 140 MMOL/L (135-145); TOTAL CARBON DIOXIDE 23.4 MMOL/L (24-32); TOTAL PROTEIN 6.4 G/DL (6.4-8.2); eGFR 84 ML/MIN
--- NOTE | 2019-02-06 06:20 | NUR ---
Problems reprioritized. Patient report given, questions answered & plan of care reviewed with CARLOS Valadez. Addendum: 02/06/19 at 0620 by Irena Hooker RN Amended: Links added.
--- NOTE | 2019-02-06 06:44 | NUR ---
Patient in room [facility] 346. I have received report from Mackenzie GONZALEZ and had the opportunity to ask questions and assume patient care.
[2019-02-06] MEDS: heparin, porcine 5000 units/ml vial SQ SCH ×2 (07:30→20:55)
[2019-02-06] MEDS: K and/or MAG REPLACEMENT MC SCH (08:00)
[2019-02-06] MEDS ORDERED: famotidine 20mg tablet PO PRN (09:10)
[2019-02-06] MEDS: linezolid 600mg tablet PO SCH ×2 (09:51→20:55)
[2019-02-06] MEDS ORDERED: fluticasone nasal spray 16GM bottle NS SCH (11:00)
--- NOTE | 2019-02-06 11:19 | NUR ---
Keith GONZALEZmanaged care specialist asked staff to clarify setting of wound vac, as was set at 175. DR Hernadez called. Dr hernadez clarified that wound vac should be at 75mmhg . information given to Keith GONZALEZ who is currently at bedside.
[2019-02-06 12:51] LABS: CLARITY,URINE CLEAR (Clear); COLOR,URINE STRAW (Yellow); GLUCOSE, URINE NEGATIVE (Neg); KETONES,URINE TRACE mg/dl (Neg); LEUKOCYTE ESTERASE ,URINE NEGATIVE (Neg); NITRITES, URINE NEGATIVE (Neg); OCCULT BLOOD,URINE NEGATIVE (Neg); PH,URINE 5.5 (4.8-8.0); PROTEIN,URINE NEGATIVE (Neg); UROBILINOGEN,URINE 0.2 E.U/dL (0.2-1.0)
[2019-02-06 12:52] LABS: UA COLLECTION TYPE NON-SPECIFIED
[2019-02-06] MEDS: HYDROcodone/acetaminophen 10/325mg tab PO PRN (14:49)
[2019-02-06] MEDS: normal saline 1000ml 1,000 ML IV SCH (14:49)
--- NOTE | 2019-02-06 15:30 | NUR ---
Student documentation: I have reviewed all interventions, assessments performed and documented by Manav Linn and Soham Pizarro [facility] nursing students.
--- NOTE | 2019-02-06 17:14 | NUR ---
Wound referal for patient for wound VAC. At 1200 There is a VAC to the right groin with setting 175mmHg. The order read 175mmHg. I was concerned that this was a high pressure for the wound and suggested the primary RN call Dr Hernadez for clarification. Order was clarified and VAC down to 75mmHg,
--- NOTE | 2019-02-06 18:00 | NUR ---
pt states the swelling to bilat groin, penis & scrotum has decreased to near his baseline Addendum: 02/07/19 at 0205 by Afua Ewing RN Amended: Links added.
--- NOTE | 2019-02-06 18:26 | NUR ---
Problems reprioritized. Patient report given, questions answered & plan of care reviewed with Pat RN.
--- NOTE | 2019-02-06 18:30 | NUR ---
Patient in room [facility] 346. I have received report from CARLOS Valadez and had the opportunity to ask questions and assume patient care.
[2019-02-06] MEDS ORDERED: BUDESONIDE 0.25 MG/2 ML AMPUL.NEB IH PRN (20:00)
[2019-02-06] MEDS: lisinopril 10 MG tablet PO SCH (20:54)
[2019-02-06] MEDS ORDERED: atorvastatin 20mg tablet PO SCH (21:00)
[2019-02-06] MEDS ORDERED: ALPRAZolam 0.5mg tablet PO SCH (21:00)
[2019-02-07] VITALS: BP 139/76
[2019-02-07] MEDS: normal saline 1000ml 1,000 ML IV SCH ×2 (00:15→10:16)
[2019-02-07 04:47] LABS: BASOPHILS # (AUTO) 0.1 X10'3 (0-0.2); BASOPHILS % (AUTO) 0.8 % (0-1); EOSINOPHILS # (AUTO) 0.2 X10'3 (0-0.9); EOSINOPHILS % (AUTO) 1.8 % (0-6); HEMATOCRIT 32.2 % (42.0-52.0); HEMOGLOBIN 10.8 g/dl (14.0-17.9); LYMPHOCYTES # (AUTO) 2.3 X10'3 (1.1-4.8); LYMPHOCYTES % (AUTO) 24.6 % (21-51); MEAN CORPUSCULAR HEMOGLOBIN 30.8 PG (27.0-31.0); MEAN CORPUSCULAR HGB CONC 33.4 g/dL (33.0-36.5); MONOCYTES % (AUTO) 10.9 % (2-12); NEUTROPHILS # (AUTO) 5.9 X10'3 (1.8-7.7); NEUTROPHILS % (AUTO) 61.9 % (42-75); PLATELET COUNT 332 X10'3 (140-440); RED CELL DISTRIBUTION WIDTH 14.7 % (11.5-14.5); WHITE BLOOD COUNT 9.5 X10'3 (4.5-11.0)
[2019-02-07 05:19] LABS: ALANINE AMINOTRANSFERASE 28 U/L (12-78); ALKALINE PHOSPHATASE 42 IU/L (46-116); ANION GAP 10 (8-16); ASPARTATE AMINO TRANSFERASE 18 U/L (10-37); BILIRUBIN,TOTAL 0.1 MG/DL (0.1-1.0); BLOOD UREA NITROGEN 13 MG/DL (7-18); CALCIUM 8.6 MG/DL (8.5-10.1); CHLORIDE 111 MMOL/L (99-107); CREATININE 0.93 MG/DL (0.60-1.10); GLUCOSE 95 MG/DL (70-104); PHOSPHORUS 3.4 MG/DL (2.3-4.5); POTASSIUM 3.9 MMOL/L (3.5-5.1); SODIUM 144 MMOL/L (135-145); TOTAL CARBON DIOXIDE 22.8 MMOL/L (24-32); eGFR 84 ML/MIN
--- NOTE | 2019-02-07 06:20 | NUR ---
Patient in room [facility] 346. I have received report from Pat RN and had the opportunity to ask questions and assume patient care.
[2019-02-07] MEDS: lisinopril 10 MG tablet PO SCH (06:43)
[2019-02-07] MEDS: HYDROcodone/acetaminophen 10/325mg tab PO PRN (06:43)
[2019-02-07] MEDS: metoprolol succinate 25mg (24-HOUR) SR. Tablet PO SCH ×2 (06:44→08:00)
[2019-02-07] MEDS: linezolid 600mg tablet PO SCH (06:44)
[2019-02-07] MEDS: heparin, porcine 5000 units/ml vial SQ SCH (06:48)
[2019-02-07 07:05] VITALS: BP 133/80
[2019-02-07] MEDS ORDERED: aspirin 81mg tab.chew PO SCH (08:00)
[2019-02-07] MEDS: K and/or MAG REPLACEMENT MC SCH (08:00)
[2019-02-07] MEDS ORDERED: LINE600T32 PO (10:45)
[2019-02-07 10:54] VITALS: BP 134/62
--- NOTE | 2019-02-07 11:50 | NUR ---
Patient seen by Dr Archuleta. wound vac delivered for home use. patient is for discharge. All DC instructions given to patient, including wound vac instructions. patient appears to understand. case liner is setting up wound care for patient at home.patient is waiting for ride home at this time.
--- NOTE | 2019-02-07 13:09 | NUR ---
patient called [facility] for ride home. [facility] called unit to verify status of patient . Patient still awaiting ride home.
--- NOTE | 2019-02-07 14:44 | NUR ---
ride has been delayed. will be here according to the patient at 1545hrs
--- NOTE | 2019-02-07 16:31 | NUR ---
patient DC [id number] via [facility]. christina junior dc.
[2019-02-07] MEDS ORDERED: fluticasone nasal spray 16GM bottle NS SCH (21:00)
== END 2019-02-07 15:35 | disposition home health service (06) | DRG 793 ==
LOC: ER 06:21 → ORTHO 4S 11:12 → CMPBEDREQ 19:31 → SUR 3N 21:34
PROVIDERS: ADMIT Family Medicine; ATTEND Family Medicine
PROC: 0Y953ZX Drainage of Right Inguinal Region, Percutaneous Approach, Diagnostic (ICD-10-PCS; 2019-02-05)
PROC: 0Y950ZZ Drainage of Right Inguinal Region, Open Approach (ICD-10-PCS; principal; 2019-02-05 20:11)
DX: L76.34 Postprocedural seroma of skin and subcutaneous tissue following other procedure (principal); I89.8 Other specified noninfective disorders of lymphatic vessels and lymph nodes; E78.5 Hyperlipidemia, unspecified; F32.9 Major depressive disorder, single episode, unspecified; F41.9 Anxiety disorder, unspecified; G89.4 Chronic pain syndrome; I10 Essential (primary) hypertension; I25.10 Atherosclerotic heart disease of native coronary artery without angina pectoris; G47.33 Obstructive sleep apnea (adult) (pediatric); I73.9 Peripheral vascular disease, unspecified; F12.90 Cannabis use, unspecified, uncomplicated; M19.90 Unspecified osteoarthritis, unspecified site; Y83.2 Surgical operation with anastomosis, bypass or graft as the cause of abnormal reaction of the patient, or of later complication, without mention of misadventure at the time of the procedure; M54.9 Dorsalgia, unspecified; J44.9 Chronic obstructive pulmonary disease, unspecified; K21.9 Gastro-esophageal reflux disease without esophagitis; I25.2 Old myocardial infarction; Z80.1 Family history of malignant neoplasm of trachea, bronchus and lung; Z82.49 Family history of ischemic heart disease and other diseases of the circulatory system; Z87.891 Personal history of nicotine dependence; Y92.89 Other specified places as the place of occurrence of the external cause
CPT/HCPCS: 10030; 36415; 80053; 81003; 83605; 83735; 84100; 84145; 85025; 85610; 85730; 86885; 86900; 86901; 87040; 87070; 87075; 87077; 87102; 87186; 94760; 99285; A7000; G0378; J0690; J1100; J1644; J2001; J2250; J2270; J2405; J2704; J2710; J3010; J3490; J7030; J7120